=== PATIENT | male | born 1965 | race Caucasian/White ===

== ENCOUNTER 2016-12-03 12:54 | Outpatient (CLI) | payer OTHER ==
[~2016-12-03] VITALS: Ht 182.9 cm; Wt 98.4 kg
[~2016-12-03 12:54] MED LIST: ACETAMINOPHEN TAB 650MG DOSE (2X325MG) PO ONE; ATEN50TA2 PO; DOXE75CA2 PO; NEXI40CA PO; PIRO20CA2 PO; VALT1TAB PO; diphenhydrAMINE 25 MG CAP PO ONE
[2016-12-03] MEDS ORDERED: VEDOLIZUMAB 300 MG in NS 250 ML IV ONE (13:00)
== END 2016-12-03 14:40 | disposition home or self-care (01) ==
LOC: M INFU 12:54
PROVIDERS: ATTEND Internal Medicine Gastroenterology
DX: K50.90 Crohn's disease, unspecified, without complications (principal)
CPT/HCPCS: 96413; J3380